=== PATIENT | male | born 1975 | race Caucasian/White ===

== ENCOUNTER 2016-11-23 12:46 | Inpatient (IN) | payer SELFPAY ==
--- NOTE | 2016-11-23 13:01 | ED.PDOC ---
History of Present Illness - General Chief Complaint: Abdominal Pain Stated Complaint: Abdomen and back pain Time Seen by Provider: 11/23/16 13:01 Information Source: patient, RN notes reviewed, Vital Signs reviewed Exam Limitations: no limitations - History of Present Illness Initial Comments: Ankur Walker 41 y/o male with history of chronic pancreatitis had exacerbation 15 times in the past stated that had exparienced sharp shooting epigastric pain radiating to the back which has been constant .had one episode of vomiting and unable to eat since feeling nauseated. Abdominal Pain Onset Location: epigastric Pain Radiation: back Quality: sharpness, steady Timing/Duration: 24 hours Improving Factors: nothing Worsening Factors: nothing Associated Symptoms: nausea/vomiting Review of Systems - Review of Systems Constitutional: States: no symptoms reported EENTM: States: no symptoms reported Respiratory: States: no symptoms reported Cardiology: States: no symptoms reported Gastrointestinal/Abdominal: States: see HPI Genitourinary: States: no symptoms reported Musculoskeletal: States: no symptoms reported Skin: States: no symptoms reported Neurological: States: no symptoms reported Endocrine: States: no symptoms reported Hematologic/Lymphatic: States: no symptoms reported Past Medical History (General) - Patient Medical History Hx Seizures: No Hx Stroke: No Hx Dementia: No Hx Asthma: No Hx of COPD: No Hx Cardiac Disorders: No Hx Congestive Heart Failure: No Hx Pacemaker: No Hx Hypertension: Yes Hx Thyroid Disease: No Hx Diabetes: Yes Hx Gastroesophageal Reflux: No Hx Renal Disease: No Hx Cancer: No Hx of HIV: No Hx Hepatitis C: No Hx MRSA: No Hx Other PMH: Yes - chronic pancreatitis Surgical History: no surgical history - Vaccination History Hx Tetanus, Diphtheria Vaccination: No Hx Influenza Vaccination: No Hx Pneumococcal Vaccination: No - Social History Hx Tobacco Use: No Hx Chewing Tobacco Use: No Hx Alcohol Use: Yes - social Hx Substance Use: No Hx Substance Use Treatment: No Hx Depression: No Hx Physical Abuse: No Hx Emotional Abuse: No Hx Suspected Abuse: No - Activities of Daily Living Patient Lives Alone: No - family Grooming Ability: Independent Eating (Feeding) Ability: Independent Toileting Ability: Independent - Female History Patient : No Family Medical History - Family History Mother Family History: Unknown Hx Family Cancer: Yes - ovarian Physical Exam - Physical Exam General Appearance: Alert, Anxious, No apparent distress Eyes, Ears, Nose, Throat Exam: normal ENT inspection, TMs normal Neck: non-tender, full range of motion, supple, normal inspection Respiratory: chest non-tender, lungs clear, normal breath sounds Cardiovascular/Chest: normal peripheral pulses, regular rate, rhythm, no edema, no murmur Peripheral Pulses: No deficit Gastrointestinal/Abdominal: normal bowel sounds, soft, tenderness - epigastrium Extremity: normal range of motion, non-tender, normal inspection, no pedal edema , no calf tenderness Neurologic: no motor/sensory deficits, alert, normal mood/affect, oriented x 3 Skin Exam: normal color, warm/dry Lymphatic: no adenopathy Progress - Progress Progress: 11/23/16 14:27 Vital Signs - 8 hr 11/23/16 12:51 Temperature 101.0 F H Pulse Rate [ 78 Left Radial] Respiratory 20 Rate Blood Pressure 162/101 [Left Arm] O2 Sat by Pulse 97 Oximetry 11/23/16 13:01 URINE DRUG SCREEN, 7 ASSAY Stat URINALYSIS Stat 11/23/16 13:03 IV Care:Saline Lock per Protoc QSHIFT 11/23/16 13:15 EKG STAT 11/23/16 14:20 Abdomen/Pelvis w/Contrast [CT] Stat Chest,1 View [RAD] Stat 11/23/16 14:21 Hold Metformin x 48Hrs [id number] Laboratory Results - last 24 hr 11/23/16 11/23/16 11/23/16 13:20 13:20 13:20 WBC 11.0 H RBC 4.65 L Hgb 15.3 Hct 42.9 MCV 92.3 MCH 32.9 H MCHC 35.7 RDW 12.6 Plt Count 304 MPV 7.6 Absolute Neuts (auto) 8.10 H Absolute Lymphs (auto) 1.90 Absolute Monos (auto) 0.90 H Absolute Eos (auto) 0.00 Absolute Basos (auto) 0.00 Neutrophils % 73.4 Lymphocytes % 17.6 L Monocytes % 8.5 Eosinophils % 0.1 L Basophils % 0.4 Sodium 132 L Potassium 3.8 Chloride 94 L Carbon Dioxide 22 Anion Gap 19.8 H BUN 9 Creatinine 0.87 BUN/Creatinine Ratio 10.3 Random Glucose 330 H Serum Osmolality 276.1 Calcium 10.0 Total Bilirubin 0.7 AST 26 ALT 27 Alkaline Phosphatase 92 Serum Total Protein 8.1 Albumin 5.0 Globulin 3.1 Albumin/Globulin Ratio 1.6 Triglycerides Cholesterol 362 H* Cholesterol Risk Factr 8.2 H LDL Cholesterol Direct 85.1 HDL Cholesterol 44 Lipase 102 H Ethyl Alcohol < 5.40 - EKG/XRAY/CT XRAY: chest - no acute abnormalities/radiologist CT Ordered: Yes - abd/pelvis-cyst at head of pancreas,multiple groundglass nodules Departure - Departure Clinical Impression: Pancreatic pseudocyst, Pulmonary nodule, right Abdominal pain Qualifiers: Abdominal location: epigastric Qualified Code(s): R10.13 - Epigastric pain Pancreatitis, chronic Qualifiers: Pancreatitis type: idiopathic Qualified Code(s): K86.1 - Other chronic pancreatitis Diabetes mellitus Qualifiers: Diabetes mellitus type: type 1 Diabetes mellitus complication status: without complication Qualified Code(s): E10.9 - Type 1 diabetes mellitus without complications Time of Disposition: 17:07 - D/W Louisa GOYAL/Hospitalist Disposition: Admit Patient Condition: Fair Departure Forms: Patient Portal Self Enrollment Referrals: HALEY GROVE [Primary Care Provider] - 1-2 Weeks Home Medications: Ambulatory Orders Fenofibrate [Tricor] 145 mg PO 02/13/16 HYDROcodone 10MG/APAP 325MG 02/13/16 Zolpidem Tartrate [Ambien] 10 mg PO 02/13/16 amLODIPine BESYLATE [Norvasc] 5 mg PO 02/13/16
[2016-11-23] MEDS ORDERED: SODIUM CHLORIDE 0.9% 1000ML 1,000 ML IVS ONE (13:03)
[2016-11-23] MEDS ORDERED: PANTOPRAZOLE INJECTION 80 MG in SODIUM CHLORIDE 0.9% 100ML 80 ML IVPB ONE (13:04)
[2016-11-23] MEDS ORDERED: SODIUM CHLORIDE 0.9% 100ML 100 ML IVPB ONE (13:07)
[2016-11-23] MEDS ORDERED: PANTOPRAZOLE SODIUM IV 40 MG VIAL ONE (13:07)
[2016-11-23] MEDS ORDERED: MORPHINE SULFATE INJ 10 MG/ML VIAL IV ONE ×3 (14:21→17:25)
[2016-11-23] MEDS ORDERED: PROCHLORPERAZINE INJ 10 MG/2 ML VIAL IV ONE (14:22)
--- NOTE | 2016-11-23 14:42 | RAD ---
EXAM DESCRIPTION: Chest,1 View CLINICAL HISTORY: 41 years Male, fever COMPARISON: None. IMPRESSION: Heart size and pulmonary vascularity are within normal limits. There is no airspace consolidation, pleural effusion, or pneumothorax. No acute osseous abnormality. Electronically signed by: Joey Gardner MD 11/23/2016 2:41 PM CDT
[2016-11-23] MEDS ORDERED: LACTATED RINGERS 1,000 ML IVS ONE (15:02)
--- NOTE | 2016-11-23 16:24 | CT ---
EXAM: Abdomen/Pelvis w/Contrast CLINICAL INDICATION: 41-year-old male with mid RIGHT upper quadrant abdominal pain and history of pancreatitis. COMPARISON: None. EXAMINATION: CT of the abdomen and pelvis was performed following intravenous administration of contrast. Oral contrast was not administered. Multiplanar reformatted images were provided. This exam was performed according to our departmental dose optimization program which includes use of automated exposure control, adjustment of the mA and/or kV according to patient size and/or use of iterative reconstruction technique. FINDINGS: Chest: Evaluation through the lung bases reveals no focal opacity, pleural effusion or pneumothorax. Multiple bilateral basilar groundglass nodules the largest of which present within the RIGHT middle lobe measures 7 mm, (series 2, image six). Heart size is within normal limits. No pericardial effusion. Abdomen and pelvis: The liver, gallbladder, spleen, bilateral kidneys and bilateral adrenal glands are within normal limits. Focal area of cystic type hypoattenuation is identified present at the level of the head of the pancreas raising the concern for cystic neoplasm measuring 2.0 x 1.8 x 1.9 cm, (series 2, image 33). Further evaluation with MRI is recommended. Pseudocyst may be considered in the differential. The remainder the pancreas appears to be otherwise within normal limits. The vessels are patent and normal in caliber. No abdominopelvic lymph nodes are noted to be pathologically enlarged by CT measurement criteria. The bowel is within normal limits with extensive contrast material and fecal debris present throughout the large bowel. There is no abnormal bowel wall thickness or bowel dilation. No free air. No free abdominopelvic fluid collections. The appendix is within normal limits. The osseous structures are within normal limits. IMPRESSION: 1. No specific acute intra-abdominal findings are noted to suggest etiology of the patient's abdominal pain. 2. Multiple bilateral basilar nonspecific groundglass pulmonary nodules. 3. Cystic type focal area of hypoattenuation present at the level of the head of the pancreas concerning for neoplasm of uncertain etiology. Pseudocyst may be considered in the differential. Correlation with MRI is recommended. 2017 Fleischner Society Recommendations for Subsolid Lung Nodule Follow-Up based on size (average of long- and short-axis diameters). Use most suspicious nodule for followup. Single <6 mm Ground glass: No routine follow-up <6 mm Part solid: No routine follow-up > or = 6 mm Ground glass: CT at 6-12 months to confirm persistence, then CT every 2 years until 5 years > or = 6 mm Part solid: CT at 3-6 months to confirm persistence, If unchanged and solid component remains<6mm, annual CT should be performed for 5 years. Multiple < 6mm: CT at 3-6 months. If stable consider CT at 2 and 4 years. > or = 6mm: CT at 3-6 months. Subsequent management based on the most suspicious nodule(s). Electronically signed by: Dipika Abel MD 11/23/2016 4:24 PM CDT Workstation: [id number]
[2016-11-23] MEDS ORDERED: PROMETHAZINE HCL INJ 25 MG/ML VIAL IM ONE (17:31)
--- NOTE | 2016-11-23 18:11 | HP ---
SUPERVISING PHYSICIAN: Jose Cruz Garcia MD CHIEF COMPLAINT: Abdominal pain. HISTORY OF PRESENT ILLNESS: This is a 41-year-old, male patient who has a two year history of chronic pancreatitis. He sees Dr. Fermin in [place]. Yesterday , his abdomen started hurting and he actually vomited several times. Last night , he went to sleep for a couple of hours and then woke up and his pain was so intense that at one point he called the ambulance to bring him to the Emergency Room. In the Emergency Room, he was treated with some morphine as well as some antiemetics. His vital signs were stable with the exception that his blood pressure was 162/97. His labs showed a white count of 11,000, hemoglobin 15.3, hematocrit 42.9. Sodium was low at 138, potassium 3.8, chloride 94, glucose 330. Urine showed urine protein 100, urine glucose 500, urine ketones 15, trace intact urine blood. Toxicology on his urine drug screen was negative with the exception of positive for benzodiazepines. Chest x-ray per radiologic interpretation showed no acute abnormalities in the chest. CT of the abdomen per radiologic interpretation shows no specific acute intraabdominal findings noted to suggest etiology of the patient's abdominal pain; multiple bilateral basilar nonspecific ground glass pulmonary nodules; cystic type focal area of hypoattenuation present at the level of the head of the pancreas, concerning for neoplasm of uncertain etiology, pseudocyst may be considered in the differential. Correlation with MRI is recommended. According to the patient who sees Dr. Fermin, he has had a workup at [facility] in [place] for this cyst in the pancreas and he was told it was a pseudocyst. I was called for hospital admission. PAST MEDICAL HISTORY: 1. Pancreatitis, diagnosed approximately two years ago. 2. Hypertension. 3. Diabetes mellitus, type 2. 4. Gastroesophageal reflux. 5. Hyperlipidemia. 6. Osteoarthritis. 7. Chronic lower back pain. PAST SURGICAL HISTORY: None. OUTPATIENT MEDICATIONS: Per the EMR and awaiting verification. ALLERGIES: NO KNOWN DRUG ALLERGIES. SOCIAL HISTORY: He does use smokeless tobacco, but he denies smoking cigarettes. He previously drank alcohol on occasion, but has not drank any alcohol since his pancreatitis diagnosis. He denies any illicit drug use. He lives with his father. He is from his . He has one son who is 6 years old and he is disabled. REVIEW OF SYSTEMS: GENERAL: Denies fever, fatigue or weight changes. HEENT: Denies sinus symptoms, ear pain, vision changes or sore throat. RESPIRATORY: Denies wheezing, coughing or shortness of breath. CARDIAC: Denies chest pain, palpitations or tachycardia. GASTROINTESTINAL: Per history of present illness. SKIN: Denies lesions or rashes. NEUROLOGIC: Denies headache, dizziness, or seizures. PHYSICAL EXAMINATION: VITAL SIGNS: Temperature 10.3. Heart rate 64. Blood pressure 169/97. Respiratory rate 18. O2 saturation 99% on room air. GENERAL: This is a 41-year-old male patient who is sitting up in his hospital bed. He appears to be in mild to moderate pain. HEENT: Normocephalic, atraumatic. Pupils are equal and reactive. Oropharynx is clear. NECK: Supple without mass. RESPIRATORY: Clear to auscultation bilaterally. CHEST: There is equal rise and fall of the chest with inspiration and expiration. CARDIOVASCULAR: Regular rate and rhythm. ABDOMEN: Soft, nondistended. It is diffusely tender, especially on the left upper quadrant that extends to the left flank. Bowel sounds are positive. EXTREMITIES: No cyanosis, clubbing or edema. NEUROLOGIC: Awake, alert and oriented times three. LABORATORY: Labs and films are as per the history of present illness with the exception of his lipid panel. Triglycerides have not been reported yet, but his total cholesterol is 362, LDL 85.1, HDL 44, lipase 102. All other labs and films have been reviewed via the EMR. ASSESSMENT: 1. Acute on chronic pancreatitis. 2. Hypertension. 3. Diabetes mellitus, type 2. 4. Ground glass pulmonary nodules as evidenced by CT scan. 5. Pseudocyst of the pancreas. 6. Gastroesophageal reflux disease. 7. Hyperlipidemia. 8. Chronic back pain. PLAN: We will admit the patient to the hospital. We will continue bowel rest and give the patient antiemetics as well as pain medications. I started him on sliding scale insulin. He will receive Protonix for ulcer prophylaxis as well as Lovenox for DVT prophylaxis. I have also contacted Humidifier Attendant about his current status of his disability as well as discharge plan of care. He will need a pulmonary consult when he follows up with Dr. Fermin after discharge due to the ground glass opacities and pulmonary nodules as evidenced per CT scan. We will continue to monitor the patient closely and followup as needed. Dr. Garcia is the collaborating physician and available for consultation. #[id number] [facility]
[2016-11-23] MEDS ORDERED: SODIUM CHLORIDE 0.9% (FLUSH) 10 ML SYG IV PRN (19:11)
[2016-11-23] MEDS ORDERED: ONDANSETRON INJ 4 MG/2 ML VIAL IV PRN (19:14)
[2016-11-23] MEDS ORDERED: LEVALBUTEROL NEBS 1.25 MG/3 ML VIAL INH PRN (19:14)
[2016-11-23] MEDS ORDERED: PROCHLORPERAZINE INJ 10 MG/2 ML VIAL IV PRN (19:17)
[2016-11-23] MEDS ORDERED: GLUCAGON INJ 1 MG VIAL SUBCU PRN (19:18)
[2016-11-23] MEDS ORDERED: DEXTROSE 50% 25 GM/50 ML SYG IV PRN (19:18)
[2016-11-23] MEDS ORDERED: ENOXAPARIN SODIUM 40 MG/0.4 ML SYG SUBCU SCH (19:30)
[2016-11-23] MEDS ORDERED: PANTOPRAZOLE SODIUM IV 40 MG VIAL IV SCH (19:30)
[2016-11-23] MEDS ORDERED: IV SET AND CAP CHANGE INJ INJ SCH (19:30)
[2016-11-23] MEDS: KCL 20 MEQ/NS 1,000 ML IVS PRN (20:02)
[2016-11-23] MEDS: HYDROmorphone HCL INJ 2 MG/ML VIAL IV PRN ×2 (20:05→22:04)
[2016-11-24] MEDS: INSULIN LISPRO 100 UNITS/ML PEN SUBCU SCH ×4 (00:19→18:34)
[2016-11-24] MEDS: HYDROmorphone HCL INJ 2 MG/ML VIAL IV PRN ×11 (00:20→23:03)
[2016-11-24] MEDS: KCL 20 MEQ/NS 1,000 ML IVS PRN ×2 (03:46→18:11)
[2016-11-24] MEDS ORDERED: KCL 40 MEQ/WATER FOR INJECTION 40 MEQ in PREMIX BAG 1 BAG IVPB ONE (10:26)
[2016-11-24] MEDS ORDERED: KCL 40 MEQ/WATER FOR INJECTION 100 ML IVPB ONE (11:23)
--- NOTE | 2016-11-24 11:40 | PN ---
SUPERVISING PHYSICIAN: Jose Cruz Garcia MD DATE: 11/24/16 SUBJECTIVE: The patient is sitting up in bed. He looks to be in moderate pain. He denies any nausea, vomiting, diarrhea, constipation, chest pain, or shortness of breath. He continues complaints of abdominal pain, especially in the left upper quadrant and continues to extend back to his left flank. He says the Dilaudid helps, but only lasts about 1 to 1-1/2 hours. OBJECTIVE: VITAL SIGNS: T-max 24 hours 98.8. Pulse 60. Blood pressure 165/ 89. Respiratory rate 20. O2 saturation 96% on room air. LUNGS: Clear to auscultation bilaterally. CARDIAC: Regular rate and rhythm. He does occasionally become bradycardic to the upper 50s. ABDOMEN: Soft, nondistended. Moderately tender, especially to the left upper quadrant with mild left flank pain. Bowel sounds are positive. EXTREMITIES: No cyanosis, clubbing or edema. NEUROLOGIC: Awake, alert and oriented times three. LABORATORY: White count normalized to 8.8, hemoglobin 13.6, hematocrit 38.5. Sodium 135, potassium 3.1, chloride 101, carbon dioxide 23, BUN 12, creatinine 0.60. Glucose 269, total bilirubin 1.2. Triglycerides from his lab yesterday were 1483. Preliminary blood cultures are negative to date. All other labs and films have been reviewed via the EMR. ASSESSMENT: 1. Acute on chronic pancreatitis. 2. Hypertriglyceridemia with a triglyceride of 1483. 3. Hypertension. 4. Hypokalemia. 5. Diabetes mellitus, type 2. 6. Ground glass pulmonary nodules as evidenced by CT scan. 7. Pseudocyst of the pancreas. 8. Gastroesophageal reflux disease. 9. Chronic back pain. PLAN: We will continue present supportive care including continuing his bowel rest. He can have some ice chips. We are having a difficult time controlling his pain, so I may try at least one dose of fentanyl to see if that helps. Otherwise, we will just have to continue with his pain medicines as needed. I have given him some extra potassium by IV piggyback and we will recheck his labs in the morning. We will continue to monitor the patient closely and followup as needed. #[id number] [facility]
[2016-11-24] MEDS ORDERED: fentaNYL CITRATE INJ 50 MCG/ML AMP IV ONE (12:21)
[2016-11-24] MEDS ORDERED: cloNIDine PATCH 0.2 MG/24HR 0.2 MG PATCH TD SCH (17:30)
[2016-11-24] MEDS ORDERED: ENOXAPARIN SODIUM 40 MG/0.4 ML SYG SUBCU ONE (19:35)
[2016-11-24] MEDS ORDERED: PANTOPRAZOLE SODIUM IV 40 MG VIAL ONE (19:35)
[2016-11-24] MEDS: PANTOPRAZOLE SODIUM IV 40 MG VIAL IV SCH (20:03)
[2016-11-24] MEDS: ENOXAPARIN SODIUM 40 MG/0.4 ML SYG SUBCU SCH (20:03)
[2016-11-25] MEDS: INSULIN LISPRO 100 UNITS/ML PEN SUBCU SCH ×5 (00:11→21:50)
[2016-11-25] MEDS: HYDROmorphone HCL INJ 2 MG/ML VIAL IV PRN ×6 (01:26→17:28)
[2016-11-25] MEDS: KCL 20 MEQ/NS 1,000 ML IVS PRN ×3 (03:37→20:35)
--- NOTE | 2016-11-25 13:34 | PN ---
SUPERVISING PHYSICIAN: Jose Cruz Garcia MD DATE: 11/25/16 SUBJECTIVE: The patient is sitting up in his hospital bed. He has no complaints of nausea, vomiting, diarrhea, constipation, chest pain, or shortness of breath. His abdominal pain has improved and he agrees that we can advance his diet as tolerated. He also says his pain is better controlled with his oral medications and we will re-start his oral pain medications if he tolerates his clear liquid diet. OBJECTIVE: VITAL SIGNS: T-max 24 hours is 99.3. Heart rate 63. Blood pressure 171/94. Respiratory rate 18. O2 saturation 97% on room air. LUNGS: Clear to auscultation bilaterally. CARDIAC: Regular rate and rhythm. ABDOMEN: Soft. It is mildly tender in the left upper quadrant. There is no left flank pain. Bowel sounds are positive. EXTREMITIES: No cyanosis, clubbing or edema. NEUROLOGIC: Awake, alert and oriented times three. LABORATORY: White count normal at 9.4, hemoglobin and hematocrit are stable at 13.5 and 37.9. Sodium 135, potassium 3.4, chloride 101, carbon dioxide 22, BUN 8, creatinine 0.63. Blood sugars have run between 149 and 233. Total bilirubin 1.2. Preliminary blood cultures after 24 hours show no growth. All other labs and films have been reviewed via the EMR. ASSESSMENT: 1. Acute on chronic pancreatitis. 2. Hypertriglyceridemia with a triglyceride of 1483. 3. Hypertension. 4. Hypokalemia. 5. Diabetes mellitus, type 2. 6. Ground glass pulmonary nodules as evidenced by CT scan. 7. Pseudocyst of the pancreas. 8. Gastroesophageal reflux disease. 9. Chronic back pain. PLAN: We will continue present supportive care. He is to start a clear liquid diabetic diet. If he tolerates that well, we will re-start his oral pain medication. His blood pressure is also slightly elevated, so we will try to get his amlodipine restarted as soon as possible. Otherwise, we will advance his diet as tolerated. I will check his labs in the morning including a lipid panel. Hopefully he can be discharged in the next day or two once his pain has subsided and he is taking at least a bland diet. Otherwise, we will continue to monitor the patient closely and followup as needed. Dr. Garcia is the collaborating physician and available for consultation. #[id number] [facility]
[2016-11-25] MEDS: HYDROcodone 10MG/APAP 325MG 1 EA TAB PO PRN ×3 (14:07→20:33)
[2016-11-25] MEDS: amLODIPine BESYLATE 5 MG TAB PO SCH (14:28)
[2016-11-25] MEDS ORDERED: TEMAZEPAM 15 MG CAP PO PRN (19:33)
[2016-11-25] MEDS: ENOXAPARIN SODIUM 40 MG/0.4 ML SYG SUBCU SCH (20:33)
[2016-11-25] MEDS: PANTOPRAZOLE SODIUM IV 40 MG VIAL IV SCH (20:34)
[2016-11-26] MEDS: HYDROcodone 10MG/APAP 325MG 1 EA TAB PO PRN ×2 (02:44→08:41)
[2016-11-26] MEDS: KCL 20 MEQ/NS 1,000 ML IVS PRN (04:31)
[2016-11-26 05:46] VITALS: BP 159/89; TEMP 98.5; O2SAT 99
[2016-11-26] MEDS: INSULIN LISPRO 100 UNITS/ML PEN SUBCU SCH (08:15)
[2016-11-26] MEDS: amLODIPine BESYLATE 5 MG TAB PO SCH (08:40)
[2016-11-26] MEDS ORDERED: POTASSIUM CHLORIDE 20 MEQ TAB PO ONE (10:09)
--- NOTE | 2016-11-26 14:04 | DS ---
SUPERVISING PHYSICIAN: Joe Irving MD DISCHARGE DIAGNOSES: 1.. Acute on chronic pancreatitis. 2. Acute left upper quadrant abdominal pain most likely secondary to #1. 3. Hypertriglyceridemia with initial triglycerides on admission of 1483. 4. Hypertension. 5. Hypokalemia. 6. Diabetes mellitus, type 2. 7. Ground glass pulmonary nodules as evidenced by CT scan. 8. Pseudocyst of the pancreas. 9. Gastroesophageal reflux disease. 10. Chronic back pain. HISTORY OF PRESENT ILLNESS: . This is a 41-year-old male patient who has a significant history of chronic pancreatitis. He sees Dr. Fermin in [place]. On the prior to admission, his left upper quadrant of his abdomen started hurting. He had difficulty sleeping and the pain was so intense that he came to the Emergency Room. His vital signs in the Emergency Room were stable except he was slightly hypertensive. He had an initial white count of 11,000 with a hemoglobin of 15.3 and hematocrit of 42.9. Sodium was slightly low at 138, potassium 3.8, chloride 94, glucose 330. Toxicology on his urine drug screen was negative with the exception of positive for benzodiazepines. CT of the abdomen per radiologic interpretation showed no specific acute intraabdominal findings noted to suggest etiology of the patient's abdominal pain; has had multiple bilateral basilar nonspecific ground glass pulmonary nodules; as well as a cystic type focal area of hypoattenuation present at the level of the head of the pancreas concerning for neoplasm of uncertain etiology and/or a pseudocyst. According to the patient, Dr. Fermin has had a workup of his pancreas in the past and he does have a pseudocyst. The patient was admitted to the hospital for pain control as well as bowel rest. The first 24 hours in the hospital he had a very difficult time controlling his pain and was given Dilaudid. Yesterday afternoon, his pain was much better controlled. He tolerated a clear liquid diet and his oral pain medications were resumed as well as his regular home medications. He has had no nausea or vomiting overnight. His diet was advanced to a bland diet this morning and he can be discharged home. DISCHARGE PLAN: The patient will be discharged home in stable condition. He is to resume his previous medications. He is to followup with Dr. Fermin for hospital followup. It is also recommended that he have a workup of the nonspecific ground glass pulmonary nodules seen on his CT exam. He is to resume his previous activity and increase it as tolerated. He is to return to the hospital for any other complications or problems or call Dr. Fermin office. It is also recommended that he stay on a fairly bland diet for now until he sees Dr. Fermin. Dr. Irving is the collaborating physician available for consultation. DISCHARGE MEDICATIONS: 1. Amlodipine. 2. Hydrocodone. 3. TriCor. 4. Temazepam. 5. Lorazepam. #[id number] [facility]
== END 2016-11-26 11:50 | disposition home or self-care (01) | DRG 439 ==
LOC: ER 12:46 → OBSVTOIN 18:10 → MS 18:10
PROVIDERS: ADMIT Nurse Practitioner Acute Care; ATTEND Nurse Practitioner Acute Care
PROC: BW21YZZ Computerized Tomography (CT Scan) of Abdomen and Pelvis using Other Contrast (ICD-10-PCS; principal; 2016-11-23)
DX: K85.90 Acute pancreatitis without necrosis or infection, unspecified (principal); E87.1 Hypo-osmolality and hyponatremia; K86.3 Pseudocyst of pancreas; K86.1 Other chronic pancreatitis; E87.6 Hypokalemia; R91.8 Other nonspecific abnormal finding of lung field; E78.1 Pure hyperglyceridemia; I11.0 Hypertensive heart disease with heart failure; E11.9 Type 2 diabetes mellitus without complications; K21.9 Gastro-esophageal reflux disease without esophagitis; E78.5 Hyperlipidemia, unspecified; M19.90 Unspecified osteoarthritis, unspecified site; G89.29 Other chronic pain; M54.5 Low back pain; F17.290 Nicotine dependence, other tobacco product, uncomplicated

== ENCOUNTER 2016-12-24 05:29 | Emergency (ER) | payer SELFPAY ==
[2016-12-24] MEDS ORDERED: SODIUM CHLORIDE 0.9% 1000ML 1,000 ML IVS ONE ×2 (05:58→07:47)
--- NOTE | 2016-12-24 06:00 | ED.PDOC ---
History of Present Illness - General Source: patient, RN notes reviewed, Vital Signs reviewed Exam Limitations: intoxication, other - Patient is very uncooperative, won't answer questions, won't let me do an exam, won't stay still in bed. - History of Present Illness Initial Comments: Patient just complaining of pain. Obviously intoxicated. All he will say is he is hurting. Won't answer questions. Very uncooperative. Timing/Duration: other - Patient reports pain for 2 years Improving Factors: nothing Worsening Factors: nothing Associated Symptoms: other - Unknown as he won't answer questions <Susan Madsen - Last Filed: 12/24/16 06:41> <Jonnie Cloud - Last Filed: 12/24/16 12:28> - General Chief Complaint: Diabetic Complaint Stated Complaint: I hurt all over Time Seen by Provider: 12/24/16 05:29 - History of Present Illness Allergies/Adverse Reactions: Allergies NO KNOWN ALLERGY Allergy (Verified 12/24/16 05:47) Home Medications: Ambulatory Orders Fenofibrate [Tricor] 145 mg PO DAILY 02/13/16 HYDROcodone 10MG/APAP 325MG [[place] 10/325] 1 - 2 tab PO .Q6 PRN 02/13/16 amLODIPine BESYLATE [Norvasc] 5 mg PO DAILY 02/13/16 LORazepam [Ativan] 1 mg PO BEDTIME #1 tab 12/24/16 QUEtiapine FUMARATE [SEROquel] 0 mg PO BEDTIME #1 tab 12/24/16 Review of Systems - Review of Systems Unable to Obtain Due To: other - Patient will only c/o pain, won't answer any questions. <Susan Madsen - Last Filed: 12/24/16 06:41> Past Medical History (General) - Patient Medical History Hx Seizures: No Hx Stroke: No Hx Dementia: No Hx Asthma: Yes - from [age]y/o Hx of COPD: No Hx Cardiac Disorders: No Hx Congestive Heart Failure: No Hx Pacemaker: No Hx Hypertension: Yes Hx Thyroid Disease: No Hx Diabetes: Yes - takes sliding scale insulin Hx Gastroesophageal Reflux: No Hx Renal Disease: No Hx Cancer: No Hx of HIV: No Hx Hepatitis C: No Hx MRSA: No - Vaccination History Hx Tetanus, Diphtheria Vaccination: No Hx Influenza Vaccination: No Hx Pneumococcal Vaccination: No - Social History Hx Tobacco Use: No Hx Chewing Tobacco Use: No Hx Alcohol Use: No Hx Substance Use: No Hx Substance Use Treatment: No Hx Depression: No Hx Physical Abuse: No Hx Emotional Abuse: No Hx Suspected Abuse: No - Female History Patient : No <Susan Madsen - Last Filed: 12/24/16 06:41> Family Medical History - Family History Mother Family History: Unknown Hx Family Cancer: Yes - ovarian <Susan Madsen - Last Filed: 12/24/16 06:41> Physical Exam - Physical Exam General Appearance: Restless, Unkempt, Other - Obviously intoxicated Neck: non-tender, full range of motion, supple, normal inspection Respiratory: chest non-tender, lungs clear, normal breath sounds, no respiratory distress, no accessory muscle use Cardiovascular/Chest: normal peripheral pulses, regular rate, rhythm, no edema, no gallop, no JVD, no murmur Peripheral Pulses: radial,right: 2+, radial,left: 2+, dorsalis pedis,right: 2+, dorsalis pedis,left: 2+ Gastrointestinal/Abdominal: normal bowel sounds, non tender, soft, no organomegaly, no pulsatile mass Extremity: normal range of motion, non-tender, normal inspection, no pedal edema Neurologic: no motor/sensory deficits, other - Intoxicated Skin Exam: normal color, warm/dry Comments: Vital Signs 12/24/16 05:30 Temperature 98 F Pulse Rate [ 94 H left radial] Respiratory 24 Rate Blood Pressure 134/92 [left upper arm ] O2 Sat by Pulse 96 Oximetry <Susan Madsen - Last Filed: 12/24/16 06:41> - Physical Exam General Appearance: Agitated, Restless Neck: non-tender, full range of motion, supple, normal inspection <Pedro LuisCristina R - Last Filed: 12/24/16 12:28> Progress - Progress Progress: 12/24/16 06:34 Blood sugar is >600, Na is 122 w/ Cl of 87 and CO2 of 13. + for EtoH, Benzos and Methamphetamine. Normal pancreatic enzymes. Advised I would not give him narcotics while he and drugs and alcohol in his system. Refused Toradol or any non-narcotic pain medication. Will give Reg Insulin 12U sq as the last time he was here with a BS >600 16U of SQ insulin dropped his blood sugar to 72. Giving 1L NS bolus. 12/24/16 06:37 12/24/16 06:41 Review of state database reveals Rx's for Lorazepam 1mg, Trazadone 30mg, [place] and Methadone. <Susan Madsen - Last Filed: 12/24/16 06:41> - Results/Orders Results/Orders: 12/24/16 05:58 IV Care:Saline Lock per Protoc QSHIFT 12/24/16 07:45 Be Our Guest Tray (BOG) ONCE 12/24/16 09:00 QUEtiapine FUMARATE [SEROquel] 25 mg PO BID 12/24/16 10:34 BASIC METABOLIC PANEL Stat Laboratory Results - last 24 hr 12/24/16 12/24/16 12/24/16 05:47 05:47 05:47 WBC 6.6 RBC 4.35 L Hgb 14.6 Hct 41.1 L MCV 94.6 H MCH 33.5 H MCHC 35.6 RDW 12.5 Plt Count 291 MPV 8.3 Absolute Neuts (auto) 3.90 Absolute Lymphs (auto) 2.10 Absolute Monos (auto) 0.40 Absolute Eos (auto) 0.00 Absolute Basos (auto) 0.10 Neutrophils % 58.8 Lymphocytes % 32.0 Monocytes % 6.5 Eosinophils % 0.7 L Basophils % 2.0 Sodium 122 L Potassium 3.9 Chloride 87 L Carbon Dioxide 13 L* Anion Gap 25.9 H BUN 14 Creatinine 0.80 BUN/Creatinine Ratio 17.5 Random Glucose 622 H* Serum Osmolality Not Reportable Calcium 9.4 Total Bilirubin 0.3 AST 15 ALT 14 Alkaline Phosphatase 96 Creatine Kinase Serum Total Protein 6.9 Albumin 4.4 Globulin 2.5 Albumin/Globulin Ratio 1.8 Amylase 21 L Lipase < 14 L Urine Color Urine Appearance Urine pH Ur Specific [place] Urine Protein Urine Glucose (UA) Urine Ketones Urine Blood Urine Nitrite Urine Bilirubin Urine Urobilinogen Ur Leukocyte Esterase Urine RBC Urine WBC Ur Epithelial Cells Urine Bacteria Urine Opiates Screen Urine Barbiturates Ur Phencyclidine Scrn U Amphetamin/Meth Scrn U Benzodiazepines Scrn U Cocaine Metab Screen U Cannabinoids Screen Ethyl Alcohol Serum Ketones Negative 12/24/16 12/24/16 12/24/16 06:09 06:11 06:11 WBC RBC Hgb Hct MCV MCH MCHC RDW Plt Count MPV Absolute Neuts (auto) Absolute Lymphs (auto) Absolute Monos (auto) Absolute Eos (auto) Absolute Basos (auto) Neutrophils % Lymphocytes % Monocytes % Eosinophils % Basophils % Sodium Potassium Chloride Carbon Dioxide Anion Gap BUN Creatinine BUN/Creatinine Ratio Random Glucose Serum Osmolality Calcium Total Bilirubin AST ALT Alkaline Phosphatase Creatine Kinase Serum Total Protein Albumin Globulin Albumin/Globulin Ratio Amylase Lipase Urine Color Yellow Urine Appearance Clear Urine pH 5.0 Ur Specific [place] <= 1.005 Urine Protein Negative Urine Glucose (UA) >=1000 H Urine Ketones 15 H Urine Blood Trace-intact H Urine Nitrite Negative Urine Bilirubin Negative Urine Urobilinogen 0.2 Ur Leukocyte Esterase Negative Urine RBC 0 Urine WBC 0-1 Ur Epithelial Cells 0 Urine Bacteria 0 Urine Opiates Screen Negative Urine Barbiturates Negative Ur Phencyclidine Scrn Negative U Amphetamin/Meth Scrn Positive H U Benzodiazepines Scrn Positive H U Cocaine Metab Screen Negative U Cannabinoids Screen Negative Ethyl Alcohol 58.20 Serum Ketones 12/24/16 12/24/16 12/24/16 07:41 07:45 10:34 WBC RBC Hgb Hct MCV MCH MCHC RDW Plt Count MPV Absolute Neuts (auto) Absolute Lymphs (auto) Absolute Monos (auto) Absolute Eos (auto) Absolute Basos (auto) Neutrophils % Lymphocytes % Monocytes % Eosinophils % Basophils % Sodium 130 L Potassium 4.0 Chloride 99 L Carbon Dioxide 21 Anion Gap 14.0 BUN 12 Creatinine 0.56 L BUN/Creatinine Ratio 21.4 H Random Glucose 613 H* Serum Osmolality Calcium 9.2 Total Bilirubin AST ALT Alkaline Phosphatase Creatine Kinase 83 Serum Total Protein Albumin Globulin Albumin/Globulin Ratio Amylase Lipase Urine Color Urine Appearance Urine pH Ur Specific [place] Urine Protein Urine Glucose (UA) Urine Ketones Urine Blood Urine Nitrite Urine Bilirubin Urine Urobilinogen Ur Leukocyte Esterase Urine RBC Urine WBC Ur Epithelial Cells Urine Bacteria Urine Opiates Screen Urine Barbiturates Ur Phencyclidine Scrn U Amphetamin/Meth Scrn U Benzodiazepines Scrn U Cocaine Metab Screen U Cannabinoids Screen Ethyl Alcohol Serum Ketones Blood sugar -325 trending down never had any vomiting here in emergency room <Jonnie Cloud - Last Filed: 12/24/16 12:28> Departure <Susan Madsen - Last Filed: 12/24/16 06:41> - Departure Time of Disposition: 12:17 <Jonnie Cloud - Last Filed: 12/24/16 12:28> - Departure Clinical Impression: Diabetes 1.5, managed as type 1, Dehydration, Polysubstance (including opioids ) dependence with physiol dependence, Hyperglycemia Disposition: Discharge to Home or Self Care Condition: Fair Departure Forms: ED Discharge - Pt. Copy, Patient Portal Self Enrollment Instructions: Drug Abuse and Drug Addiction, DI for Drug Abuse and Drug Addiction Referrals: HALEY FERMIN [Primary Care Provider] - 1-2 Weeks Prescriptions: LORazepam [Ativan] 1 mg PO BEDTIME #1 tab QUEtiapine FUMARATE [SEROquel] 0 mg PO BEDTIME #1 tab Home Medications: Ambulatory Orders Fenofibrate [Tricor] 145 mg PO DAILY 02/13/16 HYDROcodone 10MG/APAP 325MG [[place] 10/325] 1 - 2 tab PO .Q6 PRN 02/13/16 amLODIPine BESYLATE [Norvasc] 5 mg PO DAILY 02/13/16 LORazepam [Ativan] 1 mg PO BEDTIME #1 tab 12/24/16 QUEtiapine FUMARATE [SEROquel] 0 mg PO BEDTIME #1 tab 12/24/16 Additional Instructions: Follow up with primary md Dr. Fermin 12/25/2016 call for appoint ment
[2016-12-24 06:05] VITALS: TEMP 98
[2016-12-24] MEDS ORDERED: INSULIN, REG.(HUMAN) 100 U/ML VIAL SUBCU ONE (06:27)
[2016-12-24] MEDS ORDERED: LORazepam 0.5 MG TAB PO ONE (07:55)
[2016-12-24] MEDS ORDERED: cloNIDine HCL 0.1 MG TAB PO ONE (07:55)
[2016-12-24] MEDS ORDERED: INSULIN, REG.(HUMAN) 100 U/ML VIAL IV ONE (08:25)
[2016-12-24] MEDS ORDERED: QUEtiapine FUMARATE 25 MG TAB PO SCH (09:00)
[2016-12-24 11:36] VITALS: O2SAT 97
[2016-12-24 13:03] VITALS: BP 164/85
== END 2016-12-24 12:55 | disposition home or self-care (01) ==
LOC: ER 05:29
DX: E10.65 Type 1 diabetes mellitus with hyperglycemia (principal); E86.0 Dehydration; F19.20 Other psychoactive substance dependence, uncomplicated; F11.20 Opioid dependence, uncomplicated; I10 Essential (primary) hypertension; Z79.4 Long term (current) use of insulin; Z79.899 Other long term (current) drug therapy
CPT/HCPCS: 36415; 36416; 80048; 80053; 80307; 80320; 81001; 82009; 82150; 82550; 82947; 82948; 83690; 85025; J7030

== ENCOUNTER 2017-04-03 23:51 | Inpatient (IN) | payer SELFPAY ==
[2017-04-04] MEDS ORDERED: fentaNYL CITRATE INJ 50 MCG/ML AMP IV ONE (00:07)
[2017-04-04] MEDS ORDERED: SODIUM CHLORIDE 0.9% 1000ML 1,000 ML IVS ONE ×2 (00:07→01:23)
[2017-04-04] MEDS ORDERED: PROMETHAZINE HCL INJ 12.5 MG in SODIUM CHLORIDE 0.9% 50ML 50 ML IVPB ONE (00:07)
--- NOTE | 2017-04-04 00:12 | ED.PDOC ---
History of Present Illness - General Chief Complaint: Abdominal Pain Stated Complaint: abdominal pain Time Seen by Provider: 04/03/17 23:58 Information Source: patient Exam Limitations: no limitations Additional Information: ONSET OF ABDOMINAL PAIN THIS AM. EPIGASTRIC RADIATES TO BACK, CONSTANT, SIMILAR TO PREVIOUS EPISODES OF PANCREATITIS. - History of Present Illness Abdominal Pain Onset Location: epigastric Pain Radiation: back Timing/Duration: 4-6 hours Improving Factors: nothing Worsening Factors: nothing Associated Symptoms: nausea/vomiting Review of Systems - Review of Systems Constitutional: Denies: chills, fever EENTM: States: no symptoms reported Respiratory: Denies: cough, short of breath Cardiology: Denies: chest pain, palpitations Gastrointestinal/Abdominal: States: abdominal pain, nausea, vomiting. Denies: diarrhea Genitourinary: States: no symptoms reported Musculoskeletal: States: no symptoms reported Skin: States: no symptoms reported Neurological: States: no symptoms reported Endocrine: States: no symptoms reported Hematologic/Lymphatic: States: no symptoms reported Past Medical History (General) - Patient Medical History Hx Seizures: No Hx Stroke: No Hx Dementia: No Hx Asthma: Yes - from [age]y/o Hx of COPD: No Hx Cardiac Disorders: No Hx Congestive Heart Failure: No Hx Pacemaker: No Hx Hypertension: Yes Hx Thyroid Disease: No Hx Diabetes: Yes Hx Gastroesophageal Reflux: No Hx Renal Disease: No Hx Cancer: No Hx of HIV: No Hx Hepatitis C: No Hx MRSA: No Surgical History: no surgical history - Vaccination History Hx Tetanus, Diphtheria Vaccination: No Hx Influenza Vaccination: No Hx Pneumococcal Vaccination: No - Social History Hx Tobacco Use: No Hx Chewing Tobacco Use: No Hx Alcohol Use: Yes - occasionally Hx Substance Use: No Hx Substance Use Treatment: No Hx Depression: No Hx Physical Abuse: No Hx Emotional Abuse: No Hx Suspected Abuse: No - Female History Patient : No - Triage Comment ED Triage Comment: abdominal pain, been out of home meds for couple days. Family Medical History - Family History Mother Family History: Unknown Hx Family Cancer: Yes - ovarian Physical Exam - Physical Exam General Appearance: Alert, Other - MILD DISTRESS DTP Eyes, Ears, Nose, Throat Exam: PERRL/EOMI, other - MOIST MM Neck: non-tender, full range of motion, supple Respiratory: lungs clear, normal breath sounds Cardiovascular/Chest: regular rate, rhythm, no murmur Gastrointestinal/Abdominal: normal bowel sounds, soft, no organomegaly, other - EPIGASTRIC TTP. Back Exam: normal inspection, no CVA tenderness Extremity: normal range of motion, non-tender, normal inspection Neurologic: alert, normal mood/affect Skin Exam: normal color, warm/dry Lymphatic: no adenopathy Departure - Departure Clinical Impression: Diabetes 1.5, managed as type 2 Pancreatitis, chronic Qualifiers: Pancreatitis type: idiopathic Qualified Code(s): K86.1 - Other chronic pancreatitis Hyperglycemia due to type 2 diabetes mellitus Qualifiers: Diabetes mellitus retirement insulin use: with retirement use Qualified Code(s): E11.65 - Type 2 diabetes mellitus with hyperglycemia; Z79.4 - half-way (current ) use of insulin Time of Disposition: 06:29 - D/W SU WILL ADMIT Disposition: Admit Patient Condition: Fair Departure Forms: ED Discharge - Pt. Copy, Patient Portal Self Enrollment Instructions: DI for Abdominal Pain-Adult Referrals: HALEY GROVE [Primary Care Provider] - 1-2 Weeks Home Medications: Ambulatory Orders Fenofibrate [Tricor] 145 mg PO DAILY 02/13/16 HYDROcodone 10MG/APAP 325MG [[place] 10/325] 1 - 2 tab PO .Q6 PRN 02/13/16 amLODIPine BESYLATE [Norvasc] 5 mg PO DAILY 02/13/16 LORazepam [Ativan] 1 mg PO BEDTIME #1 tab 12/24/16 QUEtiapine FUMARATE [SEROquel] 0 mg PO BEDTIME #1 tab 12/24/16 Methadone 04/04/17
[2017-04-04] MEDS ORDERED: PROMETHAZINE HCL INJ 25 MG/ML VIAL ONE (00:14)
[2017-04-04] MEDS ORDERED: SODIUM CHLORIDE 0.9% 50ML 50 ML ONE (00:14)
[2017-04-04] MEDS ORDERED: INSULIN, REG.(HUMAN) 100 U/ML VIAL SUBCU ONE (01:21)
[2017-04-04] MEDS ORDERED: HYDROmorphone HCL INJ 2 MG/ML VIAL IV ONE (03:49)
[2017-04-04] MEDS: KCL 20 MEQ/NS 1,000 ML IVS PRN ×2 (06:41→10:19)
--- NOTE | 2017-04-04 07:10 | CT ---
EXAM: CT abdomen without contrast. INDICATION: Abdominal pain, acute. TECHNIQUE: Contiguous axial CT images of the abdomen . Intravenous contrast: Absent. Oral contrast: Absent. DLP 391 mGy-cm. This exam was performed according to our departmental dose-optimization program, which includes automated exposure control, adjustment of the mA and/or kV according to patient size and/or use of iterative reconstruction technique. COMPARISON: 11/23/2016. FINDINGS: Lower chest: Partially imaged. Lung bases: There are multiple pulmonary nodules measuring 2 to 4 mm coarse, similar to the prior Cardiac apex: Unremarkable. Solid abdominal viscera: Limited by lack of intravenous contrast. Liver: Appears hypodense Gallbladder: Unremarkable. Pancreas: Routine to 1.5 cm hypodensity along the pancreatic head Spleen: Unremarkable. Adrenal glands: Unremarkable. Right kidney: No urolithiasis or hydronephrosis. Left kidney: No urolithiasis or hydronephrosis. Abdominal aorta: Unremarkable. Peritoneal: Free fluid: None. Other: No pathologic sized lymph nodes in the upper abdomen. Bowel: The visualized bowel appears unremarkable. Bones: Unremarkable. IMPRESSION: Fatty liver. Stable 1.5 cm hypodensity within the pancreatic head, which may represent a pseudocyst or cystic neoplasm. Grossly stable pulmonary nodules within the lung bases which measure 2 to 4 mm. Recommend follow-up CT scan in 12 months to assess for stability. Electronically signed by: Sherwin Scott MD 04/04/2017 7:08 AM CDT Workstation: [id number]
--- NOTE | 2017-04-04 08:20 | HP ---
SUPERVISING PHYSICIAN: Joe Irving MD CHIEF COMPLAINT: Abdominal pain. HISTORY OF PRESENT ILLNESS: This is a 42-year-old male patient with a significant history of chronic pancreatitis who had been feeling very weak over the last two days. Yesterday, he started with some nausea and vomiting around lunchtime. He also had some epigastric abdominal pain that was so severe it caused him shortness of breath. He became so weak and unable to control his vomiting that he came to the Emergency Room. He also ran out of his insulin two days ago and his blood sugar was 615 in the Emergency Room. CO2 was low at 15, but his blood gas showed a pH of 7.42 with a PCO2 of 32 and his serum ketones were negative. White count was 5.9, hemoglobin 16.1, hematocrit 46.6. Sodium was 128, potassium 3, chloride 91, BUN 6, creatinine 0.81. Lipase 17, amylase 32. He was given 2 liters of fluids as well as some IV Regular insulin. He also had a low grade temperature when he came into the Emergency Room of 100.4. CT of the abdomen per radiologic interpretation showed fatty liver, stable 1.5 cm hypodensity within the pancreatic head which may represent a pseudocyst or a cystic neoplasm, he has a grossly stable pulmonary nodule within the lung base which measures 2 to 4 mm, recommend followup CT in 12 months for stability. I was called for admission for pancreatitis and elevated blood sugar. PAST MEDICAL HISTORY: 1. History of chronic pancreatitis. He was in this hospital in November of 2016. 2. Hypertension. 3. Diabetes mellitus, type 2. 4. Gastroesophageal reflux disease. 5. Hyperlipidemia. 6. Osteoarthritis. 7. Chronic lower back pain. PAST SURGICAL HISTORY: None. OUTPATIENT MEDICATIONS: Per the EMR and awaiting verification. ALLERGIES: NO KNOWN DRUG ALLERGIES. SOCIAL HISTORY: He lives with his dad. He is . He has a young son. He does not smoke tobacco, but he uses smokeless tobacco and he denies any alcohol consumption since he was diagnosed with pancreatitis. He denies any illicit drug use. REVIEW OF SYSTEMS: GENERAL: Positive for fever and fatigue. Negative for weight changes. HEENT: Negative for sinus symptoms, ear pain, vision changes or sore throat. RESPIRATORY: Positive for shortness of breath, but most likely due to the pain. Negative for wheezing or coughing. CARDIAC: Negative for chest pain, palpitations or tachycardia. GASTROINTESTINAL: Positive for epigastric abdominal pain and nausea and vomiting. Negative for diarrhea or constipation. SKINS: Denies lesions or rashes. NEUROLOGIC: Complains of weakness and dizziness, but denies headaches or seizures. PHYSICAL EXAMINATION: VITAL SIGNS: Temperature 98.9. Heart rate 81. Blood pressure 152/90. Respiratory rate 16. O2 saturation 94% on room air. GENERAL: This is a 42-year-old male patient who is pale and lying in his hospital bed in minimal distress. HEENT: Normocephalic, atraumatic. Pupils are equal and reactive. Oropharynx is clear. NECK: Supple without mass. RESPIRATORY: Clear to auscultation bilaterally. CARDIOVASCULAR: Regular rate and rhythm. ABDOMEN: Soft, but diffusely tender especially across the epigastric region. It is nondistended. Bowel sounds are positive. EXTREMITIES: No cyanosis, clubbing or edema. NEUROLOGIC: Awake, alert and oriented times three. LABORATORY: Labs and films are as per the history of present illness. ASSESSMENT: 1. Acute on chronic pancreatitis. 2. Hyperglycemia with a blood sugar of 615 with negative ketones. 3. Diabetes mellitus, type 2. 4. Hypertension. 5. Pulmonary nodule. 6. Pseudocyst of the pancreas. 7. Gastroesophageal reflux disease. 8. Hyperlipidemia. 9. Chronic back pain. PLAN: We will admit the patient to the hospital. He will be NPO and given IV fluids. I have started Accuchecks every 4 hours and we have started him on sliding scale insulin. He will be on bowel rest the rest of today and then hopefully tomorrow we can advance it after at least 24 hours of bowel rest. I spoke with Radiology and Dr. Kulkarni agreed that his CT scan was consistent with pancreatitis, so we will treat that aggressively. Janessa Geller, our director of annual giving, has been consulted for discharge planning as well as to help him with his disability paperwork. I have given him Dilaudid for pain. I have also started him on IV Protonix for ulcer prophylaxis and Lovenox for DVT prophylaxis. I ordered routine lab for in the morning. I also have ordered bronchial hygiene. We will continue to monitor the patient closely and follow as needed. Dr. Irving is the collaborating physician and available for consultation. #[id number] [facility]
[2017-04-04] MEDS ORDERED: SODIUM CHLORIDE 0.9% (FLUSH) 10 ML SYG IV PRN (10:03)
[2017-04-04] MEDS ORDERED: DEXTROSE 50% 25 GM/50 ML SYG IV PRN (10:06)
[2017-04-04] MEDS ORDERED: GLUCAGON INJ 1 MG VIAL SUBCU PRN (10:06)
[2017-04-04] MEDS: HYDROmorphone HCL INJ 2 MG/ML VIAL IV PRN ×5 (10:18→22:04)
[2017-04-04] MEDS: ENOXAPARIN SODIUM 40 MG/0.4 ML SYG SUBCU SCH (10:19)
[2017-04-04] MEDS: IV SET AND CAP CHANGE INJ INJ SCH (10:19)
[2017-04-04] MEDS: PANTOPRAZOLE SODIUM IV 40 MG VIAL IV SCH (10:19)
[2017-04-04] MEDS ORDERED: KCL 20MEQ/D5 1/2NS 0 ML IVS ONE (10:35)
[2017-04-04] MEDS: KCL 20MEQ/D5NS 1,000 ML IVS PRN ×2 (10:39→18:16)
[2017-04-04] MEDS: INSULIN LISPRO 100 UNITS/ML PEN SUBCU SCH ×3 (12:13→20:53)
[2017-04-04] MEDS ORDERED: SODIUM CHLORIDE 0.9% (FLUSH) 10 ML SYG IV SCH (21:00)
[2017-04-05] MEDS: INSULIN LISPRO 100 UNITS/ML PEN SUBCU SCH ×4 (00:33→21:18)
[2017-04-05] MEDS: HYDROmorphone HCL INJ 2 MG/ML VIAL IV PRN ×5 (00:40→14:13)
[2017-04-05] MEDS: KCL 20MEQ/D5NS 1,000 ML IVS PRN ×2 (01:56→10:28)
[2017-04-05] MEDS ORDERED: INSULIN LISPRO 100 UNITS/ML PEN SUBCU SCH (06:00)
[2017-04-05] MEDS ORDERED: DEXTROSE 50% 25 GM/50 ML SYG IV PRN (10:50)
[2017-04-05] MEDS ORDERED: GLUCAGON INJ 1 MG VIAL SUBCU PRN (10:50)
[2017-04-05] MEDS ORDERED: KCL 20MEQ/WATER FOR INJ 100ML 20 MEQ in PREMIX BAG 1 BAG IVPB ONE (10:51)
[2017-04-05] MEDS: PANTOPRAZOLE SODIUM IV 40 MG VIAL IV SCH (11:25)
[2017-04-05] MEDS: ENOXAPARIN SODIUM 40 MG/0.4 ML SYG SUBCU SCH (11:25)
[2017-04-05] MEDS ORDERED: KCL 20MEQ/WATER FOR INJ 100ML 100 ML IVPB ONE (11:52)
[2017-04-05] MEDS ORDERED: HYDROmorphone HCL INJ 2 MG/ML VIAL IV PRN (13:22)
--- NOTE | 2017-04-05 14:30 | PN ---
SUPERVISING PHYSICIAN: Joe Irving MD DATE: 04/05/17 SUBJECTIVE: The patient is sitting in his hospital bed. His father is at the bedside. He had a clear liquid lunch that he tolerated reasonably well. He said his stomach became somewhat upset, but has had no increase in abdominal pain, no nausea or vomiting, diarrhea, chest pain or shortness of breath. OBJECTIVE: VITAL SIGNS: Afebrile. Heart rate 64. Blood pressure 112/62. Respiratory rate 18. O2 saturation 94% on room air. LUNGS: Clear to auscultation bilaterally. CARDIAC: Regular rate and rhythm. ABDOMEN: Soft, nondistended, mild diffuse tenderness across the epigastric region. EXTREMITIES: No cyanosis, clubbing or edema. NEUROLOGIC: Awake, alert and oriented times three. LABORATORY: WBC 4.4, hemoglobin 12.8, hematocrit 36.4. Blood sugars have been running in the mid-200s. Sodium 136, potassium 3.1, chloride 108, carbon dioxide 24, creatinine 0.54. All other labs and films have been reviewed via the EMR. ASSESSMENT: 1. Acute on chronic pancreatitis. 2. Hyperglycemia with a with negative ketones. 3. Diabetes mellitus, type 2. 4. Hypertension. 5. Pulmonary nodule. 6. Pseudocyst of the pancreas. 7. Gastroesophageal reflux disease. 8. Hyperlipidemia. 9. Chronic back pain. PLAN: We will continue present supportive care. I have advanced his diet to clear liquids and if he continues to tolerate that without any nausea, we will restart his home medications. We will need to watch his blood sugars closely. If we do not re-start his home medications, we will need to increase his sliding scale. I will again order routine lab in the morning. If he tolerates everything well, he should be able to be discharged home with close followup with his primary care physician. Encouraged good pulmonary hygiene. We will continue to monitor the patient closely and follow as needed. #[id number] [facility]
[2017-04-05] MEDS ORDERED: POTASSIUM CHLORIDE 20 MEQ TAB PO ONE (16:00)
[2017-04-05] MEDS: METHADONE HCL 10 MG TAB PO PRN (17:44)
[2017-04-05] MEDS ORDERED: NON-FORMULARY MEDICATION 1 EA MIS (Fenofibrate [Tricor] 145 MG) PO SCH (21:00)
[2017-04-05] MEDS: LORazepam 1 MG TAB PO PRN (21:04)
[2017-04-05] MEDS: SODIUM CHLORIDE 0.9% (FLUSH) 10 ML SYG IV SCH (21:19)
[2017-04-05] MEDS: TEMAZEPAM 15 MG CAP PO SCH (21:25)
[2017-04-05] MEDS ORDERED: IBUPROFEN 400 MG TAB PO PRN (23:50)
[2017-04-06] MEDS: METHADONE HCL 10 MG TAB PO PRN ×3 (04:40→20:30)
[2017-04-06] MEDS: INSULIN LISPRO 100 UNITS/ML PEN SUBCU SCH ×4 (07:27→21:33)
[2017-04-06] MEDS ORDERED: FENOFIBRIC ACID 135 MG CAP ONE (07:33)
[2017-04-06] MEDS ORDERED: amLODIPine BESYLATE 5 MG TAB ONE (07:33)
[2017-04-06] MEDS: LORazepam 1 MG TAB PO PRN ×3 (07:55→23:32)
[2017-04-06] MEDS: amLODIPine BESYLATE 5 MG TAB PO SCH (07:56)
[2017-04-06] MEDS: SODIUM CHLORIDE 0.9% (FLUSH) 10 ML SYG IV SCH ×2 (07:56→20:30)
[2017-04-06] MEDS: FENOFIBRIC ACID 135 MG CAP PO SCH (07:56)
[2017-04-06] MEDS: PANTOPRAZOLE SODIUM IV 40 MG VIAL IV SCH (09:32)
[2017-04-06] MEDS: ENOXAPARIN SODIUM 40 MG/0.4 ML SYG SUBCU SCH (09:33)
[2017-04-06] MEDS ORDERED: POTASSIUM CHLORIDE 20 MEQ TAB PO ONE (15:34)
--- NOTE | 2017-04-06 15:53 | PN ---
DATE: 04/06/17 SUPERVISING PHYSICIAN: Joe Irving M.D. SUBJECTIVE: The patient is sitting in his hospital bed. His appetite has been somewhat poor although he has had an 1800 calorie ADA diet, he has only eaten small amounts of it. He has had no nausea or vomiting, but he says after eating he continues to have some mild abdominal pain. OBJECTIVE: Temperature 97.8, pulse rate 72, blood pressure 138/72, respiratory rate 17, O2 sat is 97% on room air. RESPIRATORY: Clear to auscultation bilaterally. CARDIAC: Regular rate and rhythm. ABDOMEN: Soft, nondistended, non-tender. Bowel sounds are positive. EXTREMITIES: No cyanosis, clubbing or edema. NEUROLOGIC: He is awake, alert and oriented times three. LABORATORY: Blood sugars have run in the low 200s. Sodium 135, potassium 3.5, chloride 105, carbon dioxide 23, BUN 6, creatinine 0.61. Liver enzymes are within normal limits. WBCs are 3.9, hemoglobin 14.1, hematocrit 39.8. All other labs and films have been reviewed via the EMR. ASSESSMENT: 1. Acute on chronic pancreatitis. 2. Hyperglycemia with negative ketones. 3. Diabetes mellitus type 2. 4. Hypertension. 5. Pulmonary nodule. 6. Pseudocyst of the pancreas. 7. Gastroesophageal reflux disease. 8. Hyperlipidemia. 9. Chronic back pain. PLAN: We will continue present supportive care. We will plan for discharge in the morning. His diet has been advanced to an 1800 calorie ADA and hopefully overnight he will increase his intake. His IV pain medications and anti- anxieties have been discontinued and he is presently on his home medications. If he has no more abdominal pain overnight, we will send him home tomorrow. Will check his electrolytes in the morning. Will also give him an extra dose of potassium. I have encouraged him to walk in the hallways and to continue good pulmonary hygiene. Will continue to monitor the patient closely and follow as needed. Dr. Irving is the collaborating physician available for consultation. #[id number] [facility]
[2017-04-06] MEDS ORDERED: POTASSIUM CHLORIDE 20 MEQ TAB ONE (16:10)
[2017-04-06] MEDS: TEMAZEPAM 15 MG CAP PO SCH (21:34)
[2017-04-07] MEDS: METHADONE HCL 10 MG TAB PO PRN ×2 (04:34→10:28)
[2017-04-07] MEDS: INSULIN LISPRO 100 UNITS/ML PEN SUBCU SCH (07:44)
[2017-04-07] MEDS: LORazepam 1 MG TAB PO PRN (08:05)
[2017-04-07] MEDS: FENOFIBRIC ACID 135 MG CAP PO SCH (09:18)
[2017-04-07] MEDS: amLODIPine BESYLATE 5 MG TAB PO SCH (09:18)
[2017-04-07] MEDS: SODIUM CHLORIDE 0.9% (FLUSH) 10 ML SYG IV SCH (09:18)
[2017-04-07] MEDS ORDERED: POTASSIUM CHLORIDE 20 MEQ TAB PO ONE (09:29)
[2017-04-07] MEDS ORDERED: INSULIN,ISOP(HUMAN(NPH) 100 UNITS/ML PEN SUBCU SCH (10:00)
[2017-04-07] MEDS: ENOXAPARIN SODIUM 40 MG/0.4 ML SYG SUBCU SCH (10:05)
[2017-04-07] MEDS: PANTOPRAZOLE SODIUM IV 40 MG VIAL IV SCH (10:06)
[2017-04-07 10:40] VITALS: BP 113/71; TEMP 98.1; O2SAT 97
[2017-04-07] MEDS: IV SET AND CAP CHANGE INJ INJ SCH (11:35)
--- NOTE | 2017-04-07 19:19 | DS ---
SUPERVISING PHYSICIAN: Joe Irving M.D. DISCHARGE DIAGNOSIS: 1. Acute on chronic pancreatitis. 2. Hyperglycemia with negative ketones. 3. Diabetes mellitus type 2. 4. Hypertension. 5. Pulmonary nodule. 6. Pseudocyst of the pancreas. 7. Gastroesophageal reflux disease. 8. Hyperlipidemia. 9. Chronic back pain. HISTORY OF PRESENT ILLNESS: This is a 42 year-old male patient who has a significant history of chronic pancreatitis. He had been feeling very weak over the last few days prior to coming to the Emergency Room. He started with some nausea and vomiting, and then his epigastric abdominal pain became so severe that it caused him to have some shortness of breath and he came to the Emergency Room. He ran out of his insulin 2 days ago and his blood sugar was 615 in the Emergency Room. CO2 was low at 15 but his blood gas showed a pH of 7.42 and a PCO2 of 32. His serum ketones were negative. His initial white count was 5.9 with hemoglobin of 16.1 and hematocrit of 46.6. Sodium was low at 128 with potassium of 3, chloride was 91, BUN 6, creatinine 0.81. Lipase 17 and amylase was 32. He was given 2 liters of fluids as well as some IV regular insulin. He also had a low grade temperature when he came into the Emergency Room of 100.1. CT of the abdomen per radiology interpretation showed fatty liver and stable 1.5 cm hypodensity within the pancreatic head which may represent a pseudocyst or a cystic neoplasm. He has a grossly stable pulmonary nodule in the lung base which measures 2 to 4 mm[address] I discussed his [address] results with the radiologist, Dr. Ethan George, and he agreed that the CT exam was consistent with acute pancreatitis. He was admitted to the hospital. HOSPITAL COURSE: He was placed on bowel rest and given some IV fluids. His blood sugars were controlled with sliding scale insulin. He was given pain medication as well as his electrolytes were corrected. His diet was advanced yesterday and he progressed slowly with his tolerance of his diet, but he was weaned off of his IV pain medications. His outpatient medications were restarted and this morning his labs are fairly stable with the exception of his potassium is low at 3.4 and his sodium was slightly low at 134. He will receive 1 dose of supplemental potassium before he leaves the hospital today and he will be discharged home in stable condition. DISCHARGE PLAN: The patient will be discharged home in stable condition. He is to resume his previous diet. He has an appointment with his primary care physician, Dr. Fermin, on Sunday at 10:00 AM. He is to increase his activity as tolerated. He is to followup at the hospital or with Dr. Fermin for any further problems or complications. DISCHARGE MEDICATIONS: 1. Amlodipine. 2. Tricor. 3. Methadone. 4. Temazepam. 5. NPH insulin. 6. NovoLog regular insulin. 7. Ibuprofen. 8. Lorazepam. Dr. Irving is the collaborating physician available for consultation. #[id number] [facility]
== END 2017-04-07 11:29 | disposition home or self-care (01) | DRG 439 ==
LOC: ER 23:51 → OBSVTOIN 04-04 08:17 → MS 04-04 08:17
PROVIDERS: ADMIT Nurse Practitioner Acute Care; ATTEND Nurse Practitioner Acute Care
DX: K85.90 Acute pancreatitis without necrosis or infection, unspecified (principal); K86.3 Pseudocyst of pancreas; E87.1 Hypo-osmolality and hyponatremia; K86.1 Other chronic pancreatitis; E11.65 Type 2 diabetes mellitus with hyperglycemia; I10 Essential (primary) hypertension; K21.9 Gastro-esophageal reflux disease without esophagitis; G89.29 Other chronic pain; M54.9 Dorsalgia, unspecified; E78.5 Hyperlipidemia, unspecified; K76.0 Fatty (change of) liver, not elsewhere classified; E87.6 Hypokalemia; M19.90 Unspecified osteoarthritis, unspecified site; F17.290 Nicotine dependence, other tobacco product, uncomplicated; R91.1 Solitary pulmonary nodule; Z79.891 Long term (current) use of opiate analgesic; Z79.899 Other long term (current) drug therapy